=== PATIENT | male | born 1985 | race Caucasian/White ===

== ENCOUNTER → 2024-01-19 18:56 | Outpatient (CLI) | payer OTHER, SELFPAY ==
--- NOTE | 2024-01-19 19:02 | DI.MRI.S_ITS ---
PROCEDURE: MR CERVICAL SPINE WO CON INDICATIONS: Other spondylosis, cervical region TECHNIQUE: Noncontrast sagittal T1 spin echo and T2 fast spin echo, sagittal STIR, foraminal oblique sagittal T2 fast spin echo, and axial gradient echo or T2 fast spin echo through the cervical spine. COMPARISON: None. FINDINGS: Image quality: Excellent. Alignment and Curvature: There is some levocurvature. There is normal bony alignment in the AP plane. Bone Marrow: Marrow demonstrates normal overall signal. Spinal Cord: Visualized spinal cord has normal size and signal. No cerebellar tonsillar herniation. Paraspinous Soft Tissues: No paravertebral masses. Prevertebral soft tissues are normal in thickness. C2-C3: Normal appearance. C3-C4: Right facet hypertrophy and uncovertebral joint hypertrophy. No canal stenosis or foraminal stenosis. C4-C5: Mild disc bulge without canal stenosis. Bilateral uncovertebral joint hypertrophy. Right facet hypertrophy. Moderate right foraminal narrowing with mild flattening deformity on the exiting right C5 nerve root. Left foramen is patent. C5-C6: Mild chronic disc height loss. Disc bulge. No canal stenosis. Right facet hypertrophy and right uncovertebral joint hypertrophy. Moderate right foraminal narrowing with mild flattening deformity on the exiting right C6 nerve root. C6-C7: No canal stenosis or foraminal stenosis. C7-T1: No canal stenosis or foraminal stenosis. IMPRESSION: 1. Underlying levocurvature. 2. No canal stenosis. 3. Multilevel right-sided facet hypertrophy and uncovertebral joint hypertrophy. 4. Moderate right foraminal narrowing at C4-C5 and C5-C6. Dictated by: Jus Whitley M.D. on 01/20/2024 at 9:49 Approved by: Jus Whitley M.D. on 01/20/2024 at 9:55
== END ==
LOC: MRI 19:01
DX: M47.892 Other spondylosis, cervical region (principal); M48.02 Spinal stenosis, cervical region
CPT/HCPCS: 72141

== ENCOUNTER → 2024-12-05 15:38 | Outpatient (CLI) | payer OTHER, SELFPAY ==
--- NOTE | 2024-12-05 15:40 | DI.MRI.S_ITS ---
PROCEDURE: MR LUMBAR SPINE WO CON INDICATIONS: PERSISTENT LOW BACK PAIN TECHNIQUE: Noncontrast sagittal T1 spin echo and T2 fast echo, sagittal STIR, and T2 fast spin echo through the lumbar spine. In cases with scoliosis, additional coronal T2 fast spin echo may be performed. COMPARISON: None. FINDINGS: Image quality: Excellent Alignment of the lumbar spine is anatomic. Vertebral body height of the lumbar spine is well maintained. Mild fibrovascular end change at L1-2. Mild disc bulge at L5-S1. No suspicious marrow replacing lesion. Conus terminates at the level T12-L1, and is unremarkable. Right neural neural foraminal stenosis: None. Left neural foraminal stenosis: Mild at L5-S1. Axial images: T12-L1: No central canal stenosis. L1-2: Mild bilateral facet arthropathy. No central canal stenosis. L2-3: No central canal stenosis. L3-4: No central canal stenosis. L4-5: Mild bilateral facet arthropathy. No central canal stenosis. L5-S1: Status post left laminotomy. Mild disc bulge. No central canal stenosis. Mild bilateral facet arthropathy. Visualized sacrum is intact. No abdominal aortic aneurysm. IMPRESSION: 1. Status post left laminotomy at L5-S1. 2. Multilevel degenerative changes of the lumbar spine, most pronounced at L5-S1, where there is mild left neural foraminal stenosis. Dictated by: Felecia Cartagena M.D. on 12/05/2024 at 18:05 Approved by: Felecia Cartagena M.D. on 12/05/2024 at 18:12
== END ==
LOC: MRI 15:39
DX: M47.816 Spondylosis without myelopathy or radiculopathy, lumbar region (principal); M47.817 Spondylosis without myelopathy or radiculopathy, lumbosacral region; M48.07 Spinal stenosis, lumbosacral region; M54.50 Low back pain, unspecified
CPT/HCPCS: 72148